=== PATIENT | male | born 1990 | race Caucasian/White ===

== ENCOUNTER 2020-09-20 16:32 | Emergency (ER) | payer BC ==
[~2020-09-20] VITALS: Ht 188 cm; Wt 85.5 kg
[2020-09-20 16:40] VITALS: TEMP 96.8
[2020-09-20] MEDS ORDERED: ADDERALL20 MG PO (17:12)
[2020-09-20] MEDS ORDERED: KLONOPIN 0.5MG0.5 MG PO (17:12)
[2020-09-20] MEDS ORDERED: NORCO 325 MG-7.1 TAB PO (17:57)
[2020-09-20 18:20] VITALS: BP 150/84; PULSE 88
== END 2020-09-20 18:20 | disposition home or self-care (01) ==
LOC: COL.ER 16:32
DX: S52.502A Unspecified fracture of the lower end of left radius, initial encounter for closed fracture (principal); F41.9 Anxiety disorder, unspecified; F90.9 Attention-deficit hyperactivity disorder, unspecified type; V00.131A Fall from skateboard, initial encounter
CPT/HCPCS: J1170; J7030